=== PATIENT | male | born 1930 | race Caucasian/White ===

== ENCOUNTER 2017-01-01 10:23 | Day surgery (SDC) | payer MEDICARE ==
[2016-12-31 13:29] VITALS: BMI 27.7
[2017-01-01 12:44] LABS: #Eosinphils 0.3 thou/uL (0.0-0.7); #Lymphocytes 2.6 thou/uL (1.20-3.40); #Monocytes 1.3 thou/uL (0.11-0.59); #Neutrophils 6.6 thou/uL (1.40-6.50); %Basophils 0.4 % (0.0-1.0); %Eosinophils 2.8 % (0.0-10.0); %Lymphocytes 24.1 % (21.0-51.0); %Monocytes 11.5 % (0.0-10.0); Hematocrit 38.7 % (42.0-52.0); Mean Platelet Volume 7.5 fL (7.4-10.4); Red Blood Cell (RBC) Count 3.77 mill/uL (4.70-6.10); White Blood Cell (WBC) Count 10.8 thou/uL (4.8-10.8)
[2017-01-01 13:08] LABS: Anion Gap 15 mmol/L (10-20); BUN (Urea Nitrogen) 20 mg/dL (8.4-25.7); Calc. Creatinine Clearance 59 mL/min (70-130); Calcium 9.6 mg/dL (7.8-10.44); Carbon Dioxide 24 mmol/L (23-31); Chloride 105 mmol/L (98-107); Estimated GFR-MDRD 70
--- NOTE | 2017-01-01 14:57 | RAD ---
CHEST ONE VIEW: History: Pre-operative exam. Comparison: 07-30-16 FINDINGS: Atherosclerosis of the aorta. Normal cardiac silhouette. The pulmonary vessels and hilum are normal. Costophrenic angles are clear. Hyperinflation with chronic changes. No consolidation or mass. No pn eumothorax or osseous abnormality. IMPRESSION: COPD. Chronic changes. POS: [facility]
[2017-01-01] MEDS ORDERED: Fentanyl 100 MCG/2 ML VIAL ONE (16:25)
[2017-01-01] MEDS ORDERED: Bupivacaine PF 0.5% 30 ML VIAL ONE (16:35)
[2017-01-01] MEDS ORDERED: Betamet Acet/Betamet Na Ph 30 MG/5 ML VIAL ONE (16:35)
[2017-01-01] MEDS ORDERED: Bacitracin Zinc Ointment 30 gm TUBE ONE (16:35)
[2017-01-01] MEDS ORDERED: Propofol 200 MG/20 ML VIAL ONE (17:04)
[2017-01-01] MEDS ORDERED: Lidocaine 1% PF 5 ML VIAL ONE (17:04)
[2017-01-01] MEDS ORDERED: Ondansetron HCl/PF 4 MG/2 ML Vial ONE (17:04)
[2017-01-01 20:21] LABS: Bilirubin Negative (Negative); Blood, Urine Negative (Negative); Glucose, Urine (Dipstick) Negative (Negative); Ketone, Urine 15 mg/dL (Negative); Nitrite Negative (Negative); Protein, Urine (Dipstick) Negative (Neg-Trace); Urobilinogen 0.2 mg/dL (0.2-1.0)
--- NOTE | 2017-01-02 09:31 | OP ---
DATE OF PROCEDURE: 01/01/2017 PREOPERATIVE DIAGNOSES: 1. Right long finger trigger digit with tenosynovitis. 2. Right carpal tunnel median nerve compression with possible tenosynovitis. FINDINGS: 1. No thick tenosynovium in the carpal canal, but very tight band with 1 cm with stippling and dave y flattening of the median nerve within the center of the carpal canal. 2. Marked tenosynovitis, flexor digitorum profundus superficialis at the long finger along with tig ht A1 elise. SURGEON: Dr. Galindo Soria. ANESTHESIA: [place] Anesthesia, general LMA technique augmented by 8 mL at the carpal tunnel and 4 mL at the long finger block with 0.5% Marcaine with epinephrine. TOURNIQUET TIME: 16 minutes. PROCEDURES PERFORMED: 1. Right long finger trigger digit release/A1 elise release. 2. Right long finger flexor digitorum profundus radical tenosynovectomy. 3. Right long finger flexor digitorum superficialis radical tenosynovectomy. 4. Carpal tunnel release, right. DESCRIPTION OF PROCEDURE: After successful general endotracheal anesthesia, the patient's limb was prepped and draped. A timeout was done appropriately. Two surgical incisions were outlined in the standard fashion with a longitudinal oblique incision along the flexion crease at the long finger pa lmar MP joint and then the standard incision for carpal tunnel in line with the long finger from med ial to lateral and as far distal line, 6 mm distal to the volar flexion crease. The A1 elise incision was entered first with a knife, dissected with a Shinnecock blade and tenotomy to visualize digital nerve, protected them and then we visualized the tendon. Very tight A1 elise wa s released in the midline under direct visualization with a Shinnecock blade knife. Then, we evaluated the flexor tendon and found , but there was marked tenosynovial edema and t hickening of the flexor digitorum profundus and superficialis proximal to the A1 elise, under the A 1 elise and going towards the A2 elise. Therefore, a radical flexor tenosynovectomy of the flexor digitorum profundus and the flexor digitorum superficialis was performed in this wound. A 2 mL of Celestone was placed here and this wound was closed with 4-0 nylon interrupted mattress pa ttern. We then made incisions along the lines described above at the median wrist and carpal tunnel carried through skin, subcutaneous tissue, visualized the transverse carpal ligament. Under direct visuali zation, placed a small self-retaining retractor and began to release the transverse carpal ligament. First a Shinnecock blade was used in mid portion and then we went from the mid portion distally, prote cting the primary motor branch and all digital branches where the primary motor branch was a type 1 takeoff. We then released the transcarpal ligament under direct visualization using a combination o f Shinnecock blade and tenotomy scissors from the mid portion proximally. The nerve was completely free . We inspected the flexor tendons in this region of the wrist and there was no tenosynovial edema, so no tenosynovectomy was performed at the palmar wrist. We released the tourniquet, obtained hemostasis, placed two more mL Celestone in the area where the nerve showed flattening and stippling, which is in the mid portion of the carpal canal and it was ap proximately a 1 cm wide segment. Closed this wound with interrupted 4-0 nylon in a mattress pattern and the patient had a bulky dressing applied, left the operating room without evidence of anestheti c or operative complication.
--- NOTE | 2017-01-03 09:05 | EKG ---
Test Reason : PREOP Blood Pressure : / mmHG Vent. Rate : 058 BPM Atrial Rate : 058 BPM P-R Int : 162 ms QRS Dur : 106 ms QT Int : 442 ms P-R-T Axes : 041 -61 -23 degrees QTc Int : 433 ms Sinus bradycardia Left anterior fascicular block Abnormal ECG When compared with ECG of 19-DEC-2012 19:38, Premature atrial complexes are no longer Present UT interval has decreased Inverted T waves have replaced nonspecific T wave abnormality in Inferior leads Confirmed by LAINEY LANGFORD ([id number]) on 01/03/2017 9:05:14 AM Referred By: DARIO Confirmed By:LAINEY LANGFORD
== END 2017-01-01 19:30 | disposition home or self-care (01) ==
LOC: SDC 10:23
PROVIDERS: ATTEND Orthopaedic Surgery Hand Surgery
PROC: 0LT70ZZ Resection of Right Hand Tendon, Open Approach (ICD-10-PCS; principal; 2017-01-01)
PROC: 01N50ZZ Release Median Nerve, Open Approach (ICD-10-PCS; 2017-01-01)
DX: G56.01 Carpal tunnel syndrome, right upper limb (principal); M65.331 Trigger finger, right middle finger; I10 Essential (primary) hypertension; E11.39 Type 2 diabetes mellitus with other diabetic ophthalmic complication; H40.9 Unspecified glaucoma; D64.9 Anemia, unspecified; Z90.79 Acquired absence of other genital organ(s); Z98.41 Cataract extraction status, right eye; Z98.42 Cataract extraction status, left eye; Z98.890 Other specified postprocedural states; Z90.49 Acquired absence of other specified parts of digestive tract; M19.019 Primary osteoarthritis, unspecified shoulder; M19.039 Primary osteoarthritis, unspecified wrist; Z79.84 Long term (current) use of oral hypoglycemic drugs; Z79.52 Long term (current) use of systemic steroids; Z79.1 Long term (current) use of non-steroidal anti-inflammatories (NSAID); Z79.899 Other long term (current) drug therapy
CPT/HCPCS: 71010; 80048; 81003; 85025; 85610; 93005; 93010; J0131; J0702; J2001; J2405; J2704; J3010; S0020

== ENCOUNTER 2017-11-21 09:49 | Outpatient (CLI) | payer MEDICARE | END 2017-11-21 09:50 | disposition home or self-care (01) | LOC: BICULT 09:49 | PROVIDERS: ATTEND Internal Medicine Hematology & Oncology | DX: R16.1 Splenomegaly, not elsewhere classified (principal) | CPT/HCPCS: 76705 ==

== ENCOUNTER 2018-01-10 11:39 | Day surgery (SDC) | payer MEDICARE ==
[2018-01-10] MEDS ORDERED: Phenylephrine 2.5% Ophth Soln 5 ML BOT ONE (11:46)
== END 2018-01-10 12:44 | disposition home or self-care (01) ==
LOC: SDC 11:39
PROVIDERS: ATTEND Ophthalmology
PROC: 085K3ZZ Destruction of Left Lens, Percutaneous Approach (ICD-10-PCS; principal; 2018-01-10)
DX: H26.492 Other secondary cataract, left eye (principal); E11.39 Type 2 diabetes mellitus with other diabetic ophthalmic complication; H40.9 Unspecified glaucoma; Z79.82 Long term (current) use of aspirin; Z79.899 Other long term (current) drug therapy